=== PATIENT | female | born 1970 | race American Indian/Alaskan Native ===

== ENCOUNTER 2019-07-21 04:40 | Inpatient (IN) | payer OTHER ==
[2019-07-21] MEDS ORDERED: ALBUTEROL 2.5 MG/3 ML NEBU IH ONE ×2 (04:53→04:57)
[2019-07-21] MEDS ORDERED: IPRATROPIUM 0.02% NEBU 2.5 ML IH ONE ×2 (04:53→04:57)
[2019-07-21] MEDS ORDERED: FUROSEMIDE 40 MG/4 ML INJ IV ONE (05:07)
--- NOTE | 2019-07-21 05:50 | XRay Report ---
CHEST 1 VIEW INDICATION: respiratory distress. COMPARISON: None FINDINGS: SUPPORT DEVICES: None. HEART / MEDIASTINUM: No significant abnormality. LUNGS / PLEURA: No significant pulmonary or pleural abnormality. No pneumothorax. ADDITIONAL FINDINGS: Bilateral total shoulder arthroplasties IMPRESSION: 1. No acute findings. Signer Name: Darci Alcala MD Signed: 07/21/2019 5:45 AM Workstation Name: [id number]
--- NOTE | 2019-07-21 05:54 | Emergency Department Report ---
ED Shortness of Breath HPI - General Chief Complaint: Dyspnea/Respdistress Stated Complaint: ANDREW/HEADACHE Time Seen by Provider: 07/21/19 05:04 Source: patient Mode of arrival: Ambulatory Limitations: No Limitations - History of Present Illness Initial Comments: Patient is a 48-year-old female with past medical history hypertension diabetes who is also noncompliant with medications who is presenting with shortness of breath. Patient states she's had a mild cough nonproductive for the last 2 days with worsening shortness of breath. Patient states that approximately 2 AM tonight she states she could not breathe. Patient states when she lies flat she feels as though she is "filling up". As though she smothering. Patient denies chest pain fevers chills nausea vomiting or diarrhea at this time. - Related Data Allergies Allergy/AdvReac Type Severity Reaction Status Date / Time hydromorphone [From Dilaudid] Allergy Unknown Verified 07/21/19 05:21 oxycodone Allergy Unknown Verified 07/21/19 05:21 ED Review of Systems ROS: Stated complaint: ANDREW/HEADACHE Other details as noted in HPI Comment: All other systems reviewed and negative ED Past Medical Hx - Past Medical History Previous Medical History?: Yes Hx Hypertension: Yes Hx Diabetes: Yes - Surgical History Past Surgical History?: Yes Additional Surgical History: Knee, ACL repair - Social History Smoking Status: Never Smoker Substance Use Type: None ED Physical Exam - General Limitations: No Limitations General appearance: alert, in no apparent distress - Head Head exam: Present: atraumatic, normocephalic - Eye Eye exam: Present: normal appearance - ENT ENT exam: Present: mucous membranes moist - Neck Neck exam: Present: normal inspection - Respiratory Respiratory exam: Present: respiratory distress, wheezes, rales, rhonchi. Absent: normal lung sounds bilaterally - Cardiovascular Cardiovascular Exam: Present: normal rhythm, tachycardia. Absent: systolic murmur, diastolic murmur, rubs, gallop - GI/Abdominal GI/Abdominal exam: Present: soft, normal bowel sounds. Absent: distended, tenderness, guarding, rebound - Extremities Exam Extremities exam: Present: normal inspection, other (Snow lower streaming edema present) - Back Exam Back exam: Present: normal inspection - Neurological Exam Neurological exam: Present: alert, oriented X3 - Psychiatric Psychiatric exam: Present: normal affect, normal mood - Skin Skin exam: Present: warm, dry, intact, normal color. Absent: rash ED Course Vital Signs 07/21/19 07/21/19 07/21/19 04:45 04:58 05:07 Temperature 98.4 F 97.8 F Pulse Rate 122 H 109 H Pulse Rate [ 105 H Bilateral Throughout] Respiratory 20 19 Rate Respiratory 25 H Rate [Bilateral Throughout] Blood Pressure 209/134 Blood Pressure 208/109 [Left] O2 Sat by Pulse 96 100 Oximetry - Reevaluation(s) Reevaluation #1: 07/21/19 05:51 Patient 48-year-old female who states she feels "as though she is filling up" when she last went she has a cough and wheezes. Patient also has a mild headache. Patient's blood pressure was 209/134 arrival patient is tachycardic. The patient's differential is congestive heart failure pneumonia pulmonary embolus hypertensive crisis. Patient was started on nitroglycerin drip to help with her blood pressure as well as to give some preload reduction. Lasix given the patient was started on an hour-long neb treatment as well. Laboratory studies have been ordered. ED Medical Decision Making - EKG Data -: EKG Interpreted by Me EKG shows normal: sinus rhythm, axis, intervals, QRS complexes, ST-T waves Rate: tachycardia - EKG Data 07/21/19 05:54 sinus tachycardia - Radiology Data CHEST 1 VIEW INDICATION: respiratory distress. COMPARISON: None FINDINGS: SUPPORT DEVICES: None. HEART / MEDIASTINUM: No significant abnormality. LUNGS / PLEURA: No significant pulmonary or pleural abnormality. No pneumothorax. ADDITIONAL FINDINGS: Bilateral total shoulder arthroplasties IMPRESSION: 1. No acute findings. Signer Name: Darci Alcala MD Signed: 07/21/2019 5:45 AM Workstation Name: [id number] per my interpretation patient does have some mild pulmonary vascular congestion Critical care attestation.: If time is entered above; I have spent that time in minutes in the direct care of this critically ill patient, excluding procedure time. ED Disposition Condition: Stable
[2019-07-21 06:00] LABS: Basophils % (Auto) 0.2 % (0.0-1.8); Eosinophils # (Auto) 0.2 K/mm3 (0.0-0.4); Eosinophils % (Auto) 1.9 % (0.0-4.3); Hematocrit 37.1 % (30.3-42.9); Hemoglobin 12.1 gm/dl (10.1-14.3); Lymphocytes # (Auto) 2.8 K/mm3 (1.2-5.4); Lymphocytes % (Auto) 30.5 % (13.4-35.0); Mean Corpuscular HGB Conc 33 % (30-34); Mean Corpuscular Volume 79 fl (79-97); Monocytes # (Auto) 0.5 K/mm3 (0.0-0.8); Monocytes % (Auto) 5.2 % (0.0-7.3); Platelet Count 277 K/mm3 (140-440); Red Blood Count 4.69 M/mm3 (3.65-5.03); Red Cell Distribution Width 13.2 % (13.2-15.2)
[2019-07-21] MEDS ORDERED: NITROGLYCERIN DRIP 50 MG/250 ML BOTTLE IV SCH (06:00)
[2019-07-21 06:21] LABS: INR 0.85 (0.87-1.13)
[2019-07-21 06:22] LABS: Partial Thromboplastin Time 29.7 Sec. (24.2-36.6)
[2019-07-21 06:25] LABS: BUN/Creatinine Ratio 17; Blood Urea Nitrogen 15 mg/dL (7-17); Calcium 9.1 mg/dL (8.4-10.2); Hemolysis Index 0
[2019-07-21] MEDS ORDERED: POTASSIUM CHLORIDE ER 20 MEQ TAB PO ONE (06:40)
--- NOTE | 2019-07-21 07:53 | Cat Scan Report ---
CTA CHEST WITH IV CONTRAST INDICATION / CLINICAL INFORMATION: ANDREW elevated Dimer. TECHNIQUE: Axial CT images were obtained through the chest after injection of 100 cc Omnipaque 300 mg percent IV contrast. 3 plane MIP and/or 3D reconstructions were produced. All CT scans at this location are per formed using CT dose reduction for ALARA by means of automated exposure control. COMPARISON: None available. FINDINGS: PULMONARY ARTERIES: No pulmonary emboli. THORACIC AORTA: No significant abnormality. HEART: No significant abnormality. CORONARY ARTERIES: No significant calcification. PLEURA: No pleural effusion. No pneumothorax. LYMPH NODES: No significant adenopathy. LUNGS: Patchy airspace changes left lung involving the left upper and left lower lobe ADDITIONAL FINDINGS: Small hiatal hernia is present UPPER ABDOMEN: No acute findings. SKELETAL STRUCTURES: No significant osseous abnormality. IMPRESSION: 1. No CT evidence for pulmonary embolism. 2. Inflammatory changes left lung consistent with pneumonia. Signer Name: Darci Alcala MD Signed: 07/21/2019 7:48 AM Workstation Name: [id number]
--- NOTE | 2019-07-21 08:30 | Emergency Department Report ---
Blank Doc - Documentation Documentation: I saw and examined the patient. She is clinically stable. She had an elevated d-dimer and a CTA was ordered. It was negative. Physical exam Blood pressure is at a reasonable target on a nitro drip Patient's lungs are clear. Cardiovascular S1-S2 regular rate without murmur. Impression hypertensive crisis Plan discussed with Dr. Godron. Admit ICU Dr. Guerrero.
[2019-07-21] MEDS ORDERED: cefTRIAXone/NS 2 GM/100 ML 2 GM/100 ML BAG IV ONE (10:59)
[2019-07-21] MEDS ORDERED: ENOXAPARIN 40 MG/0.4 ML INJ SUB-Q ONE (10:59)
[2019-07-21] MEDS ORDERED: amLODIPine 10 MG TAB ONE (11:01)
[2019-07-21] MEDS ORDERED: LOSARTAN 50 MG TAB ONE ×2 (11:01→15:21)
[2019-07-21] MEDS ORDERED: SODIUM CHLORIDE 0.9% 1000 ML 1,000 ML ONE (11:02)
--- NOTE | 2019-07-21 11:35 | History and Physical Report ---
History of Present Illness Date of examination: 07/21/19 Date of admission: 07/21/19 08:30 Chief complaint: sob, accel htn History of present illness: Patient is a 48-year-old female with past medical history hypertension diabetes who is also noncompliant with medications who is presenting with shortness of breath. Patient states she's had a mild cough nonproductive for the last 2 days with worsening shortness of breath. Patient states that approximately 2 AM tonight she states she could not breathe. The patient states that she reportedly received prescriptions for hypertension 2 weeks ago but has not been taking them daily as instructed. Patient states that she does not like the way that they make her feel. Patient denies any chest p ain. No visual disturbances. ER physician started nitroglycerin drip for accelerated hypertension. With regards to her respiratory status patient complains of only a dry cough no sputum production. No fever chills. Past History Past Medical History: diabetes, hypertension Past Surgical History: Other (Knee, ACL repair) Social history: no significant social history Family history: no significant family history Medications and Allergies Allergies Allergy/AdvReac Type Severity Reaction Status Date / Time hydromorphone [From Dilaudid] Allergy Unknown Verified 07/21/19 05:21 oxycodone Allergy Unknown Verified 07/21/19 05:21 Home Medications Medication Instructions Recorded Confirmed Last Taken Type Losartan [Cozaar] 50 mg PO QDAY 07/21/19 07/21/19 Unknown History Spironolactone [Aldactone] 25 mg PO QDAY 07/21/19 07/21/19 Unknown History amLODIPine [Norvasc] 10 mg PO DAILY 07/21/19 07/21/19 Unknown History Active Meds: Active Medications Amlodipine Besylate (Amlodipine) 10 mg PO DAILY JANNA Enoxaparin Sodium (Enoxaparin) 40 mg SUB-Q QDAY@1000 JANNA Nitroglycerin/Dextrose (Tridil Drip 50mg/250ml) 50 mg in 250 mls @ 3 mls/hr IV TITR JANNA; Protocol Last Admin: 07/21/19 05:30 Dose: 10 mcg/min, 3 mls/hr Documented by: Sodium Chloride (Nacl 0.9% 1000 Ml) 1,000 mls @ 75 mls/hr IV DIRECT JANNA Ceftriaxone Sodium (Rocephin/Ns 2 Gm/100 Ml) 2 gm in 100 mls @ 200 mls/hr IV Q24HR JANNA; Protocol Azithromycin 500 mg/ Sodium (Chloride) 250 mls @ 250 mls/hr IV Q24HR JANNA; Protocol Losartan Potassium (Cozaar) 50 mg PO QDAY JANNA Sodium Chloride (Sodium Chloride Flush Syringe 10 Ml) 10 ml IV BID JANNA Sodium Chloride (Sodium Chloride Flush Syringe 10 Ml) 10 ml IV PRN PRN PRN Reason: LINE FLUSH Spironolactone (Aldactone) 25 mg PO QDAY JANNA Review of Systems All systems: negative Exam - Constitutional Vitals: Temp Pulse Resp BP Pulse Ox 98.2 F 110 H 22 159/81 95 07/21/19 06:48 07/21/19 06:48 07/21/19 06:48 07/21/19 06:48 07/21/19 06:48 General appearance: Present: no acute distress, well-nourished - EENT Eyes: Present: PERRL ENT: hearing intact, clear oral mucosa - Neck Neck: Present: supple, normal ROM - Respiratory Respiratory effort: normal Respiratory: bilateral: CTA - Cardiovascular Heart Sounds: Present: S1 & S2. Absent: rub, click - Extremities Extremities: pulses symmetrical, No edema Peripheral Pulses: within normal limits - Abdominal General gastrointestinal: Present: soft, non-tender, non-distended, normal bowel sounds Female genitourinary: Present: normal - Integumentary Integumentary: Present: clear, warm, dry - Musculoskeletal Musculoskeletal: gait normal, strength equal bilaterally - Psychiatric Psychiatric: appropriate mood/affect, intact judgment & insight - Neurologic Neurologic: CNII-XII intact, moves all extremities Results - Labs CBC & Chem 7: 07/21/19 05:35 07/21/19 05:35 Labs: Laboratory Last Values WBC 9.3 K/mm3 (4.5-11.0) 07/21/19 05:35 RBC 4.69 M/mm3 (3.65-5.03) 07/21/19 05:35 Hgb 12.1 gm/dl (10.1-14.3) 07/21/19 05:35 Hct 37.1 % (30.3-42.9) 07/21/19 05:35 MCV 79 fl (79-97) 07/21/19 05:35 MCH 26 pg (28-32) L 07/21/19 05:35 MCHC 33 % (30-34) 07/21/19 05:35 RDW 13.2 % (13.2-15.2) 07/21/19 05:35 Plt Count 277 K/mm3 (140-440) 07/21/19 05:35 Lymph % (Auto) 30.5 % (13.4-35.0) 07/21/19 05:35 [place] % (Auto) 5.2 % (0.0-7.3) 07/21/19 05:35 Eos % (Auto) 1.9 % (0.0-4.3) 07/21/19 05:35 Baso % (Auto) 0.2 % (0.0-1.8) 07/21/19 05:35 Lymph # 2.8 K/mm3 (1.2-5.4) 07/21/19 05:35 [place] # 0.5 K/mm3 (0.0-0.8) 07/21/19 05:35 Eos # 0.2 K/mm3 (0.0-0.4) 07/21/19 05:35 Baso # 0.0 K/mm3 (0.0-0.1) 07/21/19 05:35 Seg Neutrophils % 62.2 % (40.0-70.0) 07/21/19 05:35 Seg Neutrophils # 5.8 K/mm3 (1.8-7.7) 07/21/19 05:35 PT 11.7 Sec. (12.2-14.9) L 07/21/19 05:35 INR 0.85 (0.87-1.13) L 07/21/19 05:35 APTT 29.7 Sec. (24.2-36.6) 07/21/19 05:35 D-Dimer 430.19 ng/mlDDU (0-234) H 07/21/19 05:35 Sodium 141 mmol/L (137-145) 07/21/19 05:35 Potassium 3.3 mmol/L (3.6-5.0) L 07/21/19 05:35 Chloride 102.1 mmol/L (98-107) 07/21/19 05:35 Carbon Dioxide 23 mmol/L (22-30) 07/21/19 05:35 Anion Gap 19 mmol/L 07/21/19 05:35 BUN 15 mg/dL (7-17) 07/21/19 05:35 Creatinine 0.9 mg/dL (0.7-1.2) 07/21/19 05:35 Estimated GFR > 60 ml/min 07/21/19 05:35 BUN/Creatinine Ratio 17 % 07/21/19 05:35 Glucose 279 mg/dL (65-100) H 07/21/19 05:35 Calcium 9.1 mg/dL (8.4-10.2) 07/21/19 05:35 Troponin T < 0.010 ng/mL (0.00-0.029) 07/21/19 05:35 NT-Pro-B Natriuret Pep 343.4 pg/mL (0-450) 07/21/19 05:35 Assessment and Plan Assessment and plan: Left upper lobe and lower lobe community-acquired pneumonia. Patient will be placed on pneumonia pathway and started on IV antibiotics. Follow-up cultures. Serial chest x-ray Accelerated hypertension. Etiology secondary to medical noncompliance. Contin ue nitroglycerin drip for now and transition to her home medications. Diabetes mellitus type 2. Accu-Cheks and sliding scale insulin.
[2019-07-21] MEDS ORDERED: DEXTROSE 50% IN WATER (25GM) 50 ML SYRINGE IV PRN (11:36)
[2019-07-21] MEDS: ENOXAPARIN 40 MG/0.4 ML INJ SUB-Q SCH (12:40)
[2019-07-21] MEDS: cefTRIAXone/NS 2 GM/100 ML 2 GM/100 ML BAG IV SCH (12:40)
[2019-07-21] MEDS: SODIUM CHLORIDE 0.9% 1000 ML 1,000 ML IV SCH (12:41)
[2019-07-21] MEDS: amLODIPine 10 MG TAB PO SCH (12:42)
[2019-07-21] MEDS: AZITHROMYCIN 500 MG in SODIUM CHLORIDE 0.9% 250ML 250 ML IV SCH (12:55)
[2019-07-21] MEDS ORDERED: ACETAMINOPHEN 500 MG TAB ONE (15:12)
[2019-07-21] MEDS: hydrALAZINE 25 MG TAB PO SCH ×2 (15:21→22:35)
[2019-07-21] MEDS ORDERED: hydrALAZINE 25 MG TAB ONE (15:21)
[2019-07-21] MEDS ORDERED: ACETAMINOPHEN 325 MG TAB PO ONE ×2 (15:21)
[2019-07-21] MEDS: SPIRONOLACTONE 25 MG TAB PO SCH (17:50)
[2019-07-21] MEDS ORDERED: traMADol 50 MG TAB ONE (20:58)
[2019-07-21] MEDS: traMADol 50 MG TAB PO PRN (21:00)
[2019-07-21] MEDS ORDERED: niCARdipine 50 MG in SODIUM CHLORIDE 0.9% 250ML 230 ML IV SCH (22:00)
[2019-07-21] MEDS: INSULIN REGULAR, HUMAN 100 UNITS/1 ML SUB-Q SCH ×2 (22:12→22:41)
[2019-07-21] MEDS ORDERED: INSULIN REGULAR, HUMAN 100 UNITS/1 ML ONE (22:40)
[2019-07-21] MEDS ORDERED: ONDANSETRON 4 MG/2 ML INJ ONE (23:08)
[2019-07-21] MEDS: ONDANSETRON 4 MG/2 ML INJ IV PRN (23:12)
[2019-07-22] MEDS ORDERED: ACETAMINOPHEN 325 MG TAB ONE ×2 (01:11→06:52)
[2019-07-22] MEDS: ACETAMINOPHEN 325 MG TAB PO PRN ×2 (01:12→06:50)
[2019-07-22 05:29] LABS: Basophils # (Auto) 0.1 K/mm3 (0.0-0.1); Basophils % (Auto) 0.5 % (0.0-1.8); Eosinophils # (Auto) 0.1 K/mm3 (0.0-0.4); Eosinophils % (Auto) 0.8 % (0.0-4.3); Hematocrit 35.4 % (30.3-42.9); Hemoglobin 11.6 gm/dl (10.1-14.3); Lymphocytes # (Auto) 2.2 K/mm3 (1.2-5.4); Mean Corpuscular HGB Conc 33 % (30-34); Mean Corpuscular Volume 78 fl (79-97); Monocytes # (Auto) 0.5 K/mm3 (0.0-0.8); Monocytes % (Auto) 4.5 % (0.0-7.3); Platelet Count 290 K/mm3 (140-440); Red Blood Count 4.56 M/mm3 (3.65-5.03); Red Cell Distribution Width 13.2 % (13.2-15.2)
[2019-07-22 05:49] LABS: BUN/Creatinine Ratio 15; Blood Urea Nitrogen 9 mg/dL (7-17); Calcium 8.9 mg/dL (8.4-10.2); Hemolysis Index 3
[2019-07-22] MEDS: hydrALAZINE 25 MG TAB PO SCH (06:47)
[2019-07-22] MEDS: INSULIN REGULAR, HUMAN 100 UNITS/1 ML SUB-Q SCH ×4 (08:02→22:36)
[2019-07-22] MEDS ORDERED: INSULIN REGULAR, HUMAN 100 UNITS/1 ML ONE ×2 (08:02→13:15)
[2019-07-22] MEDS ORDERED: hydrALAZINE 25 MG TAB PO SCH (09:13)
[2019-07-22] MEDS ORDERED: cefTRIAXone/NS 2 GM/100 ML 2 GM/100 ML BAG IV ONE (09:54)
[2019-07-22] MEDS: cefTRIAXone/NS 2 GM/100 ML 2 GM/100 ML BAG IV SCH (09:58)
[2019-07-22] MEDS ORDERED: SPIRONOLACTONE 25 MG TAB PO SCH (10:00)
[2019-07-22] MEDS ORDERED: LOSARTAN 50 MG TAB PO SCH (10:00)
[2019-07-22] MEDS: AZITHROMYCIN 500 MG in SODIUM CHLORIDE 0.9% 250ML 250 ML IV SCH (10:30)
[2019-07-22] MEDS ORDERED: amLODIPine 10 MG TAB ONE (11:05)
[2019-07-22] MEDS ORDERED: ENOXAPARIN 40 MG/0.4 ML INJ SUB-Q ONE (11:05)
[2019-07-22] MEDS ORDERED: hydrALAZINE 100 MG TAB ONE (11:06)
[2019-07-22] MEDS: amLODIPine 10 MG TAB PO SCH (11:12)
[2019-07-22] MEDS: hydrALAZINE 100 MG TAB PO SCH ×3 (11:12→22:35)
[2019-07-22] MEDS: ENOXAPARIN 40 MG/0.4 ML INJ SUB-Q SCH (11:13)
[2019-07-22] MEDS: SPIRONOLACTONE 25 MG TAB PO SCH (11:47)
[2019-07-22] MEDS: LOSARTAN 50 MG TAB PO SCH (11:49)
[2019-07-22] MEDS ORDERED: ONDANSETRON 4 MG/2 ML INJ ONE (12:20)
[2019-07-22] MEDS: ONDANSETRON 4 MG/2 ML INJ IV PRN ×2 (13:00→20:13)
--- NOTE | 2019-07-22 13:00 | Progress Note ---
Assessment and Plan Assessment and plan: Left upper lobe and lower lobe community-acquired pneumonia. Continue IV antibiotics. Follow-up cultures. Accelerated hypertension. Etiology secondary to medical noncompliance. Patient has transition off of IV antihypertensive medication and blood pressure has stabilized. Continue current regimen Diabetes mellitus type 2. Accu-Cheks and sliding scale insulin. History Interval history: No new issues overnight. Hospitalist Physical - Constitutional Vitals: Temp Pulse Resp BP Pulse Ox 98.2 F 88 20 149/88 97 07/21/19 06:48 07/22/19 11:49 07/22/19 10:15 07/22/19 11:49 07/22/19 10:15 General appearance: Present: no acute distress, well-nourished - EENT Eyes: Present: PERRL, EOM intact ENT: hearing intact, clear oral mucosa, dentition normal - Neck Neck: Present: supple, normal ROM - Respiratory Respiratory effort: normal Respiratory: bilateral: CTA - Cardiovascular Rhythm: regular Heart Sounds: Present: S1 & S2. Absent: gallop, rub - Extremities Extremities: no ischemia, No edema, Full ROM - Abdominal General gastrointestinal: soft, non-tender, non-distended, normal bowel sounds - Integumentary Integumentary: Present: clear, warm, dry - Neurologic Neurologic: CNII-XII intact, moves all extremities Results - Labs CBC & Chem 7: 07/22/19 05:13 07/22/19 05:13 Labs: Laboratory Last Values WBC 10.3 K/mm3 (4.5-11.0) 07/22/19 05:13 RBC 4.56 M/mm3 (3.65-5.03) 07/22/19 05:13 Hgb 11.6 gm/dl (10.1-14.3) 07/22/19 05:13 Hct 35.4 % (30.3-42.9) 07/22/19 05:13 MCV 78 fl (79-97) L 07/22/19 05:13 MCH 25 pg (28-32) L 07/22/19 05:13 MCHC 33 % (30-34) 07/22/19 05:13 RDW 13.2 % (13.2-15.2) 07/22/19 05:13 Plt Count 290 K/mm3 (140-440) 07/22/19 05:13 Lymph % (Auto) 21.0 % (13.4-35.0) 07/22/19 05:13 [place] % (Auto) 4.5 % (0.0-7.3) 07/22/19 05:13 Eos % (Auto) 0.8 % (0.0-4.3) 07/22/19 05:13 Baso % (Auto) 0.5 % (0.0-1.8) 07/22/19 05:13 Lymph # 2.2 K/mm3 (1.2-5.4) 07/22/19 05:13 [place] # 0.5 K/mm3 (0.0-0.8) 07/22/19 05:13 Eos # 0.1 K/mm3 (0.0-0.4) 07/22/19 05:13 Baso # 0.1 K/mm3 (0.0-0.1) 07/22/19 05:13 Seg Neutrophils % 73.2 % (40.0-70.0) H 07/22/19 05:13 Seg Neutrophils # 7.6 K/mm3 (1.8-7.7) 07/22/19 05:13 PT 11.7 Sec. (12.2-14.9) L 07/21/19 05:35 INR 0.85 (0.87-1.13) L 07/21/19 05:35 APTT 29.7 Sec. (24.2-36.6) 07/21/19 05:35 D-Dimer 430.19 ng/mlDDU (0-234) H 07/21/19 05:35 Sodium 137 mmol/L (137-145) 07/22/19 05:13 Potassium 3.6 mmol/L (3.6-5.0) 07/22/19 05:13 Chloride 101.0 mmol/L (98-107) 07/22/19 05:13 Carbon Dioxide 25 mmol/L (22-30) 07/22/19 05:13 Anion Gap 15 mmol/L 07/22/19 05:13 BUN 9 mg/dL (7-17) 07/22/19 05:13 Creatinine 0.6 mg/dL (0.7-1.2) L 07/22/19 05:13 Estimated GFR > 60 ml/min 07/22/19 05:13 BUN/Creatinine Ratio 15 % 07/22/19 05:13 Glucose 204 mg/dL (65-100) H 07/22/19 05:13 POC Glucose 212 (70-105) H 07/22/19 13:00 Calcium 8.9 mg/dL (8.4-10.2) 07/22/19 05:13 Troponin T < 0.010 ng/mL (0.00-0.029) 07/21/19 05:35 NT-Pro-B Natriuret Pep 343.4 pg/mL (0-450) 07/21/19 05:35 Active Medications - Current Medications Current Medications: Generic Name Dose Route Start Last Admin Trade Name Freq PRN Reason Stop Dose Admin Acetaminophen 650 mg 07/21/19 18:26 07/22/19 06:50 Tylenol PO 650 mg Q4H PRN Administration Pain, Moderate (4-6) Amlodipine Besylate 10 mg 07/22/19 10:00 07/22/19 11:12 Amlodipine PO 10 mg DAILY JANNA Administration Dextrose 50 ml 07/21/19 11:36 D50w (25gm) Syringe IV Q30MIN PRN Hypoglycemia Protocol Enoxaparin Sodium 40 mg 07/21/19 10:00 07/22/19 11:13 Enoxaparin SUB-Q 40 mg QDAY@1000 JANNA Administration Hydralazine HCl 100 mg 07/22/19 10:00 07/22/19 11:12 Apresoline PO 100 mg Q8HR JANNA Administration Sodium Chloride 1,000 mls @ 75 mls/hr 07/21/19 08:30 07/21/19 12:41 Nacl 0.9% 1000 Ml IV 75 mls/hr DIRECT JANNA Administration Ceftriaxone Sodium 2 gm in 100 mls @ 200 mls/hr 07/21/19 10:00 07/22/19 09:58 Rocephin/Ns 2 Gm/100 Ml IV 200 mls/hr Q24HR JANNA Administration Protocol Azithromycin 500 mg/ Sodium 250 mls @ 250 mls/hr 07/21/19 10:00 07/22/19 10:30 Chloride IV 250 mls/hr Q24HR JANNA Administration Protocol Nicardipine HCl 50 mg/ Sodium 250 mls @ 25 mls/hr 07/21/19 22:00 07/22/19 02:15 Chloride IV 5 mg/hr TITR JANNA 25 mls/hr Titration Protocol 5 MG/HR Insulin Human Regular 0 units 07/21/19 16:30 07/22/19 08:02 Humulin R SUB-Q 2 units ACHS JANNA Administration Protocol Losartan Potassium 100 mg 07/22/19 10:00 07/22/19 11:49 Cozaar PO 100 mg QDAY JANNA Administration Ondansetron HCl 4 mg 07/21/19 22:58 07/21/19 23:12 Zofran IV 4 mg Q6H PRN Administration Nausea And Vomiting Sodium Chloride 10 ml 07/21/19 10:00 07/22/19 09:59 Sodium Chloride Flush Syringe 10 Ml IV 10 ml BID JANNA Administration Sodium Chloride 10 ml 07/21/19 08:30 Sodium Chloride Flush Syringe 10 Ml IV PRN PRN LINE FLUSH Spironolactone 25 mg 07/21/19 16:00 07/22/19 11:47 Aldactone PO 25 mg QDAY JANNA Administration Tramadol HCl 50 mg 07/21/19 20:24 07/21/19 21:00 Ultram PO 50 mg Q6H PRN Administration Pain, Moderate (4-6)
[2019-07-22] MEDS: traMADol 50 MG TAB PO PRN (13:08)
[2019-07-22] MEDS ORDERED: traMADol 50 MG TAB ONE (13:12)
[2019-07-22] MEDS: SODIUM CHLORIDE 0.9% 1000 ML 1,000 ML IV SCH (15:49)
[2019-07-22] MEDS ORDERED: BUTALB/ACETAMINOPHEN/CAFFEINE TAB PO ONE (17:00)
[2019-07-23] MEDS: SODIUM CHLORIDE 0.9% 1000 ML 1,000 ML IV SCH (02:35)
[2019-07-23] MEDS: hydrALAZINE 100 MG TAB PO SCH ×2 (06:04→14:27)
[2019-07-23] MEDS: traMADol 50 MG TAB PO PRN (06:08)
[2019-07-23] MEDS: ONDANSETRON 4 MG/2 ML INJ IV PRN ×2 (09:22→15:54)
[2019-07-23] MEDS: INSULIN REGULAR, HUMAN 100 UNITS/1 ML SUB-Q SCH ×3 (09:28→17:32)
--- NOTE | 2019-07-23 09:47 | Discharge Summary ---
Providers - Providers Date of Admission: 07/21/19 08:30 Date of discharge: 07/23/19 Attending physician: CULLEN INIGUEZ Primary care physician: SORORITY SUPERVISOR Hospitalization Reason for admission: accel htn, pna Condition: Stable Hospital course: This is a 48-year-old female with past medical history of hypertension, diabetes mellitus type 2 and medical noncompliance who presented through the emergency room with complaints of shortness of breath. Patient was noted to have a cough nonproductive for 2 days prior to admission and had progressive worsening shortness of breath which prompted her visit to the emergency room. Upon evaluation, patient was found to have left upper lobe and lower lobe infiltrate on chest x-ray as well as elevated blood pressure. Patient was admitted with diagnosis of community-acquired pneumonia and accelerated hypertension. CTA of the chest was also completed which confirmed pneumonia and showed no PE. The patient was treated with IV antibiotics for the pneumonia and started on IV antihypertensive medications for her blood pressure. Patient was transitioned from nitroglycerin drip to Cardene drip then to p.o. medications with stabilization of her blood pressure. The patient also had improvement with her pneumonia with normal white count and was afebrile at the time of discharge. Patient is felt to have received maximal hospital benefit and will be discharged home. Dedicated discharge time 32 minutes. Disposition: DC-01 TO HOME OR SELFCARE Core Measure Documentation - Palliative Care Palliative Care/ Comfort Measures: Not Applicable - Core Measures Any of the following diagnoses?: none Exam - Constitutional Vitals: Temp Pulse Resp BP Pulse Ox 99.4 F 105 H 16 126/64 97 07/23/19 04:38 07/23/19 04:38 07/23/19 06:08 07/23/19 04:38 07/23/19 04:38 General appearance: Present: no acute distress, well-nourished - EENT Eyes: Present: PERRL ENT: hearing intact, clear oral mucosa - Neck Neck: Present: supple, normal ROM - Respiratory Respiratory effort: normal Respiratory: bilateral: CTA - Cardiovascular Heart Sounds: Present: S1 & S2. Absent: rub, click - Extremities Extremities: pulses symmetrical, No edema Peripheral Pulses: within normal limits - Abdominal General gastrointestinal: Present: soft, non-tender, non-distended, normal bowel sounds Female genitourinary: Present: normal - Integumentary Integumentary: Present: clear, warm, dry - Musculoskeletal Musculoskeletal: gait normal, strength equal bilaterally - Psychiatric Psychiatric: appropriate mood/affect, intact judgment & insight - Neurologic Neurologic: CNII-XII intact, moves all extremities Plan Activity: advance as tolerated Weight Bearing Status: Weight Bear as Tolerated Diet: diabetic Follow up with: PRIMARY CARE, [Primary Care Provider] - 7 Days Prescriptions: Spironolactone [Aldactone] 25 mg PO QDAY #30 tab amLODIPine 10 mg PO DAILY #30 tab hydrALAZINE [Apresoline TAB] 100 mg PO Q8HR #90 tab cefUROXime [Ceftin] 500 mg PO Q12H #20 tablet Losartan [Cozaar] 100 mg PO QDAY #30 tablet traMADoL [Ultram 50 MG tab] 50 mg PO Q6H PRN #10 tablet PRN Reason: Pain, Moderate (4-6)
[2019-07-23] MEDS: ENOXAPARIN 40 MG/0.4 ML INJ SUB-Q SCH (11:02)
[2019-07-23] MEDS: cefTRIAXone/NS 2 GM/100 ML 2 GM/100 ML BAG IV SCH (11:02)
[2019-07-23] MEDS: amLODIPine 10 MG TAB PO SCH (11:03)
[2019-07-23] MEDS: SPIRONOLACTONE 25 MG TAB PO SCH (11:03)
[2019-07-23] MEDS: LOSARTAN 50 MG TAB PO SCH (11:03)
[2019-07-23] MEDS: AZITHROMYCIN 500 MG in SODIUM CHLORIDE 0.9% 250ML 250 ML IV SCH (13:32)
--- NOTE | 2019-07-23 14:03 | Cat Scan Report ---
CT HEAD WITHOUT CONTRAST INDICATION / CLINICAL INFORMATION: headache. TECHNIQUE: All CT scans at this location are performed using CT dose reduction for ALARA by means of automated e xposure control. COMPARISON: None available. FINDINGS: HEMORRHAGE: None. EXTRA-AXIAL SPACES: Normal in size and morphology for the patient's age. VENTRICULAR SYSTEM: Normal in size and morphology for the patient's age. CEREBRAL PARENCHYMA: No significant abnormality. No acute territorial infarct. MIDLINE SHIFT OR HERNIATION: None. CEREBELLUM / BRAINSTEM: No significant abnormality. ORBITS: Normal as visualized. SOFT TISSUES of HEAD: No significant abnormality. CALVARIUM: No significant abnormality. PARANASAL SINUSES / MASTOID AIR CELLS: Normal as visualized. ADDITIONAL FINDINGS: None. IMPRESSION: 1. No acute intracranial abnormality. Signer Name: Golden Martini MD Signed: 07/23/2019 1:59 PM Workstation Name: [id number]
[2019-07-23] MEDS ORDERED: BUTALB/ACETAMINOPHEN/CAFFEINE TAB PO PRN (14:39)
[2019-07-23 18:27] VITALS: BP 120/59
== END 2019-07-23 19:00 | disposition home or self-care (01) | DRG 195 ==
LOC: ED 04:40 → CC1 08:30 → 4A 07-22 09:36 → 3A 07-22 09:54
PROVIDERS: ADMIT Hospitalist; ATTEND Hospitalist
DX: J18.9 Pneumonia, unspecified organism (principal); I10 Essential (primary) hypertension; E11.9 Type 2 diabetes mellitus without complications; Z91.14 Patient's other noncompliance with medication regimen; Z79.899 Other long term (current) drug therapy; Z88.5 Allergy status to narcotic agent
CPT/HCPCS: 36415; 70450; 71045; 71275; 80048; 82962; 83880; 84484; 85025; 85379; 85610; 85730; 93005; 93010; 94644; G0378; J0456; J0696; J1650; J1815; J1940; J2405; J7030; J7050